=== PATIENT | female | born 1985 | race Caucasian/White ===

== ENCOUNTER 2023-08-02 16:09 | Emergency (ER) | payer MEDICAID ==
[~2023-08-02] VITALS: Ht 157.5 cm; Wt 77.0 kg
[2023-08-02] MEDS: predniSONE 20 mg tablet PO ONE (17:45)
[2023-08-02 17:48] VITALS: BP 127/64; PULSE 76; RESP 18; TEMP 98.2; O2SAT 100
== END 2023-08-02 17:57 | disposition home or self-care (01) ==
LOC: ER 16:10
DX: L24.9 Irritant contact dermatitis, unspecified cause (principal); R40.0 Somnolence
CPT/HCPCS: 99283; J7512